=== PATIENT | female | born 1975 | race Caucasian/White ===

== ENCOUNTER → 2020-09-17 | Outpatient (CLI) | payer BC ==
[~2020-09-17] MED LIST: MOTRIN800 MG PO; ZOFRAN ODT4 MG SL
== END | disposition home or self-care (01) ==
LOC: RAD 09:55
PROVIDERS: ATTEND Nurse Practitioner Family
DX: M25.511 Pain in right shoulder (principal)

== ENCOUNTER 2021-10-12 07:59 | Emergency (ER) | payer SELFPAY ==
[2021-10-12] MEDS ORDERED: NAPROXEN250 MG PO (09:24)
[2021-10-12] MEDS ORDERED: TYLENOL325 M1 PO (09:24)
== END 2021-10-12 09:32 | disposition home or self-care (01) ==
LOC: ED 07:59
DX: S92.102A Unspecified fracture of left talus, initial encounter for closed fracture (principal); S93.402A Sprain of unspecified ligament of left ankle, initial encounter; S93.602A Unspecified sprain of left foot, initial encounter; Z88.5 Allergy status to narcotic agent; Z88.3 Allergy status to other anti-infective agents; W01.0XXA Fall on same level from slipping, tripping and stumbling without subsequent striking against object, initial encounter; Y93.01 Activity, walking, marching and hiking; Y92.89 Other specified places as the place of occurrence of the external cause; Y99.9 Unspecified external cause status